=== PATIENT | male | born 2000 | race Two or more races ===

== ENCOUNTER 2024-10-24 17:17 | Emergency (ER) | payer OTHER, SELFPAY ==
[2024-10-24 17:18] VITALS: BMI 28.5
[2024-10-24 18:16] VITALS: BP 148/69; PULSE 73; RESP 18; TEMP 37; O2SAT 96
--- NOTE | 2024-10-24 18:30 | XR_ITS ---
Examination: CT maxillofacial, without intravenous contrast. 2-D sagittal reconstructions. 3-D reconstructions. Date and time of exam:October 24, 2024, 1920 hrs. Indications: Cocaine abuse history with sinus pressure and pain necrosis minus CTDI: vol (mGy):47.4. DLP: (mGycm):514 Technique: Multiple axial images of maxillofacial region, 3.0 mm slice thickness. 2-D sagittal and coronal reconstructions. 3-D reconstructions. Low dose protocols were performed. One or more of the following dose reduction techniques were used; automated exposure control, adjustment of the mA and/or KV according to patient size, use of iterative reconstruction technique. Findings: Clinical: Intact as well as orbital rims The optic globes exhibit symmetry. No nasal bone or nasal septum erosion No depression zygomatic arches. Pterygoid plates maxilla and the mandible intact There is pronounced soft tissue thickening in the left nasal airway Impression: No facial fracture No robinson cortical bone destruction Prominent sinus disease in the left nasal airway.
--- NOTE | 2024-10-24 18:30 | XR_ITS ---
Examination: PA chest single view Technique: Upright PA chest single view Date and time: October 24, 2024, 1837 hrs. Indications: Shortness of breath congestion beginning 3 days ago. Findings: Normal heart size. Lungs are clear. The osseous structures are intact. Impression: No active disease.
--- NOTE | 2024-10-24 18:31 | EKG_ITS ---
[facility] Test Date: 2024-10-24 Pat Name: NEDRA MERAZ Department: Room: - Gender: Male Underwriting Technician: : 2000 Requested By: Kolton Navarro Order Number: [id number] Reading MD: Kolton Navarro Measurements Intervals [place] Rate: 58 P: 54 [place]: 166 QRS: 52 QRSD: 105 T: 52 QT: 388 QTc: 383 Interpretive Statements SINUS BRADYCARDIA WITH SINUS ARRHYTHMIA INCOMPLETE RIGHT BUNDLE BRANCH BLOCK [90+ ms QRS DURATION, TERMINAL R IN V1/V2, 40+ ms S IN I/aVL/V4/V5/V6] No previous ECG available for comparison /store/S0/[id number].pdf
--- NOTE | 2024-10-24 18:34 | PD.EDCHEST ---
ED Chest Pain RME/HPI General Stated Complaint: DIFF BREATHING SINCE TUESDAY Time Seen by Provider: 10/24/24 18:30 Arrival date/time: 10/24/24 17:17 24M with history of cocaine use presents to ED with sinus congestion, CP, and SOB after he snorted some cocaine on Tuesday. Limitations: no limitations Related Data Previous Rx's ?Medication ?Instructions ?Recorded doxycycline hyclate 100 mg tablet 100 mg PO BID 7 days #14 tabs 10/24/24 Allergies Allergy/AdvReac Type Severity Reaction Status Date / Time Penicillins Allergy Verified 10/24/24 17:21 Review of Systems Constitutional Constitutional: Reports as per HPI ENT Ears, Nose, Mouth, and Throat: Reports as per HPI, Reports nasal congestion and Reports sinus pressure Cardiovascular Cardiovascular: Reports as per HPI, Reports chest pain and Reports dyspnea Respiratory Respiratory: Reports as per HPI and Reports dyspnea Past Medical History Social History SMOKING STATUS: Current every day smoker ED Exam General Limitations: Present no limitations General appearance: Present alert, in no apparent distress and anxious Head Head exam: Present atraumatic ENT ENT exam: Present normal exam, normal oropharynx and mucous membranes moist Neck Neck exam: Present normal inspection, full ROM and trachea midline Chest Chest inspection: Present normal inspection and symmetric chest wall rise Respiratory Respiratory exam: Present normal lung sounds bilaterally Psychiatric Psychiatric exam: Present normal affect, normal mood and anxious Skin Skin exam: Present warm, dry, intact and normal color Course Quality Measures none Orders Category Date Time Status Bedside COVID-19 Antigen Test NOW Care 10/24/24 18:34 Active Bedside Influenza A&B Antigen Test NOW Care 10/24/24 18:34 Completed EKG (ED ONLY) *Do not use* NOW Care 10/24/24 18:[address] facial bones wo con Stat Exams 10/24/24 18:30 Completed EKG (ED Only) Stat Exams 10/24/24 18:31 Draft XR chest 1V portable Stat Exams 10/24/24 18:30 Completed CBC Stat Lab 10/24/24 18:58 Completed Comprehensive Metabolic Panel Stat Lab 10/24/24 18:58 Completed D-Dimer Stat Lab 10/24/24 18:58 Completed Troponin I Stat Lab 10/24/24 18:58 Completed Dexamethasone Inj [Decadron Inj] Med 10/24/24 18:33 Discontinued 10 mg PO X1 ONE Vital Signs Vital signs: Vital Signs Temperature 98.6 F 10/24/24 18:16 Pulse Rate 73 10/24/24 18:16 Respiratory Rate 18 10/24/24 18:16 Blood Pressure 148/69 H 10/24/24 18:16 Pulse Oximetry (%) 96 10/24/24 18:16 Oxygen Delivery Method Room Air 10/24/24 18:16 O2 at 96% on RA and WNLs Chest Pain MDM Narrative MDM Narrative:: 24M with history of cocaine use presents to ED with sinus congestion, CP, and SOB after he snorted some cocaine on Tuesday. Physical exam reveals no obvious sinus trauma or tenderness. Nares clear. Normal WOB. Patient is afebrile, alert, but anxious. Speech normal. Gait normal. CT facial includes sinus disease in L nare. No leukocytosis. CMP unremarkable. Normal trop and D-dimer. EKG is sinus melissa of 58 with possible RBBB. CXR normal. Meds and rehab/pre vocational counselor given. Patient data External records reviewed:: [facility] previous records Clinical information provided by:: patient Social determinants that could affect healthcare access:: substance use Patient has the following chronic illnesses:: drug use How is presenting disease/condition affected by chronic disease/condition?: exacerbated by Evaluation data The following diagnostics were reviewed and interpreted by me:: lab results, radiology exam(s) and EKG tracing(s) Lab and/or radiology exams considered but not ordered:: ordered Interpretation Summary: above Medications / Prescriptions Medications or Prescriptions considered but not ordered:: ordered Medication administrations:: Medication Administration History Discontinued Medications Dexamethasone Sodium Phosphate (Dexamethasone Sod Phos Inj 10 Mg/Ml Vial) 10 mg PO X1 ONE Stop: 10/24/24 18:34 Last Admin: 10/24/24 18:54 Dose: 10 mg Documented By: OA above Consultations Consultation(s) initiated? (list below): No Diagnosis Chest Pain Differential Diagnosis: fracture of rib, pneumothorax, stable angina, unstable angina pectoris, atypical chest pain, st elevation myocardial infarction, costochondritis, chest pain, biliary colic and other (sinusitis, PE, drug-induced sinus disease, anxiety reaction, cocaine use) Most likely diagnosis given after review of the tests above:: sinusitis, cocaine use Admission Indicated Admission indicated?: not indicated Admission Request Was there a request for admission?: No Disposition Plan Disposition Plan: Discharge Discharge Attestation Discharge Attestation: The patient and all family members were given an opportunity to ask questions and understood the discharge instructions. Discharge instructions specifically effects, indications for sooner follow up or return to the emergency department, and the expected course of current diagnosis. Patient condition: Stable Discharge Plan Plan Patient Disposition: HOME (Self Care) Discharge Disposition comment: Stable Prescriptions/Referrals Prescriptions/Med Rec: New doxycycline hyclate 100 mg tablet 100 mg PO BID 7 Days Qty: 14 0RF Referrals: No Primary/Family,Physician [Primary Care Provider] - In 1 week Problem List Clinical Impression: Sinusitis, Cocaine use Patient/Caregiver Discharge Instructions Education Materials: Cocaine: Understanding Its Effects, Cocaine: Getting Help, ED Sinusitis (Antibiotic Treatment) Additional Instructions: Please follow-up with PCP within 24-48 hours and return immediately if symptoms worsen. Stop using cocaine. Print Language: Italian Stand Alone Forms: Patient Portal Info Letter JEANNA/RAQUEL Supervising Physician JEANNA/RAQUEL Supervising Physician: Dr. Carson
[2024-10-24] MEDS: DEXAMETHASONE SOD PHOS INJ 10 MG/ML VIAL PO (18:54)
[2024-10-24 19:41] LABS: Basophils # (Auto) 0.0 Thou/mm3 (0.0-0.2); Basophils % (Auto) 0 % (0-2.5); Eosinophils # (Auto) 0.1 Thou/mm3 (0.0-0.5); Eosinophils % (Auto) 2 % (0-10); Hematocrit 39.2 % (41.0-53.0); Hemoglobin 13.9 g/dL (13.5-16.0); Immature Granulocytes Auto 0.03 Thou/mm3 (0.00-0.00); Lymphocytes # (Auto) 2.8 Thou/mm3 (1.0-4.8); Lymphocytes % (Auto) 38 % (10-50); Mean Corpuscular HGB Conc 35.5 g/dl (31.0-37.0); Mean Corpuscular Hemoglobin 29.8 pg (25.0-35.0); Mean Corpuscular Volume 84 fL (80-100); Monocytes # (Auto) 0.5 Thou/mm3 (0.0-0.8); Monocytes % (Auto) 7 % (0-12); Neutrophils # (Auto) 3.8 Thou/mm3 (1.8-7.7); Neutrophils % (Auto) 52 % (37-80); Nucleated Red Blood Cell # 0.00 Thou/mm3 (0.00-0.00); Nucleated Red Blood Cell % 0 /100 WBC (0); Platelet Count 259 Thou/mm3 (140-440); RDW Standard Deviation 36.7 fL (35.1-43.9); Red Blood Count 4.67 Miln/mm3 (4.50-5.90); White Blood Count 7.3 Thou/mm3 (3.8-10.6)
[2024-10-24 19:42] LABS: Alanine Aminotransferase 24 U/L (10-49); Albumin, Serum 4.6 gm/dL (3.5-5.0); Albumin/Globulin Ratio 1.7 (1.2-2.2); Alkaline Phosphatase 96 U/L (46-116); Anion Gap 8 (7-16); Aspartate Amino Transferase 21 U/L (0-34); BUN/Creatinine Ratio 8 Ratio (12-20); Bilirubin,Total 0.4 mg/dL (0.3-1.2); Blood Urea Nitrogen 9 mg/dL (9-23); Calcium 9.8 mg/dL (8.3-10.6); Calcium (Corrected) 9.8 mg/dL (8.5-10.1); Carbon Dioxide 27.8 mMol/L (20.0-31.0); Chloride 104 mMol/L (98-107); Creatinine (Component) 1.1 mg/dL (0.6-1.3); Estimated Creatinine Clearance 122.7 mL/min (>60); Globulin 2.7 gm/dL (2.3-3.5); Glucose 93 mg/dL (74-106); Osmolality,Calculated 278 (275-295); Potassium 3.8 mMol/L (3.4-5.1); Sodium 140 mMol/L (136-145); Total Protein 7.3 gm/dL (5.7-8.2); Troponin I < 0.002 ng/mL (0.0-0.045); eGFR > 60 See Note
[2024-10-24 19:45] LABS: D-Dimer < 250 ng/mL (<600)
== END 2024-10-24 20:11 | disposition home or self-care (01) ==
PROVIDERS: Physician Assistant; Emergency Provider Emergency Medicine
DX: J32.9 Chronic sinusitis, unspecified (principal); F14.90 Cocaine use, unspecified, uncomplicated; R06.02 Shortness of breath; R00.1 Bradycardia, unspecified; I49.8 Other specified cardiac arrhythmias; I45.10 Unspecified right bundle-branch block; F17.200 Nicotine dependence, unspecified, uncomplicated
CPT/HCPCS: 36415; 70486; 71045; 80053; 84484; 85025; 85379; 87400; 87811; 93005; 99284; J1100

== ENCOUNTER → 2024-12-03 | Outpatient (CLI) | payer BC, OTHER, SELFPAY ==
--- NOTE | 2024-12-03 11:00 | XR_ITS ---
Examination: Pelvic ultrasound, transabdominal, complete Technique: Transabdominal ultrasound of the pelvis performed using grayscale imaging Date and time of exam: December 03, 2024, 1113 hours INDICATIONS: Pelvic pain beginning several years ago FINDINGS: No bladder mass or bladder calculi Contracted urinary bladder Negative for prostatomegaly, no prostate nodules IMPRESSION: No pelvic mass No prostate nodules
--- NOTE | 2024-12-03 11:30 | XR_ITS ---
EXAMINATION: Testicular sonography complete TECHNIQUE: Grayscale sonographic images testicles, arterial inflow and venous outflow Doppler spectral analysis and color flow analysis Date and time: December 03, 2024, 11:21 a.m. INDICATIONS: Right testicular pain beginning several years ago FINDINGS: Right testis 4.9 cm epididymis 14 mm Arterial flow of the testicle. No testicular mass Mild hydroceles Mild varicocele Left testis 5.2 cm epididymis 13 mm Arterial flow of the testicle. No testicular mass Mild hydrocele Mild varicocele IMPRESSION: No testicular torsion or testicular mass Mild bilateral varicoceles
== END | disposition home or self-care (01) ==
PROVIDERS: PCP Nurse Practitioner Family; Referring Provider Nurse Practitioner Family; Visit Provider Nurse Practitioner Family
DX: I86.1 Scrotal varices (principal)
CPT/HCPCS: 76856; 76870